=== PATIENT | male | born 1960 | race Caucasian/White ===

== ENCOUNTER 2018-02-15 15:28 | Emergency (ER) | payer MEDICARE ==
[2018-02-15] MEDS ORDERED: DEXAMETHASONE SOD PHOSPHATE 10MG/ML 1ML VIAL ONE (15:49)
[2018-02-15] MEDS ORDERED: LIDOCAINE 5% TOPICAL PATCH TP ONE (15:49)
== END 2018-02-15 16:51 | disposition home or self-care (01) ==
LOC: EDH 15:28
DX: M54.2 Cervicalgia (principal); Z98.890 Other specified postprocedural states; Z88.8 Allergy status to other drugs, medicaments and biological substances
CPT/HCPCS: 72040; 96372; 99284; J1100